=== PATIENT | female | born 1960 | race Two or more races ===

== ENCOUNTER → 2025-02-14 | Outpatient (CLI) | payer MEDICAID, SELFPAY ==
--- NOTE | 2025-02-14 14:30 | XR_ITS ---
Examination: Screening digital mammography, bilateral Computer aided detection 3-D breast Tomosynthesis, bilateral Date and time of exam: February 14, 2025 1425 hours Compared to mammograms dating to 08/04/2010 Indication: Screening Technique: Nonmagnified MLO, CC views of the breasts to been obtained, reconstructed from 3-D Tomosynthesis images. R2 computer aided detection program utilized for evaluation of suspicious masses and/or abnormal calcifications. 3-D Tomosynthesis images obtained. Findings: Scattered areas of fibroglandular density Benign calcifications. 10 mm focal asymmetry 12:00 position left breast IMPRESSION: BI-RADS Category 0: Incomplete: Need additional imaging evaluation 10 mm focal asymmetry 12:00 position left breast, recommend follow-up spot tomographic views of this asymmetry as well as left breast sonography to complete the workup
== END | disposition home or self-care (01) ==
PROVIDERS: PCP Registered Nurse Community Health; Referring Provider Registered Nurse Community Health; Visit Provider Registered Nurse Community Health
DX: Z12.31 Encounter for screening mammogram for malignant neoplasm of breast (principal); N64.89 Other specified disorders of breast
CPT/HCPCS: 77063; 77067

== ENCOUNTER → 2025-03-21 | Outpatient (CLI) | payer MEDICAID, SELFPAY ==
--- NOTE | 2025-03-21 15:15 | XR_ITS ---
Examination: Breast ultrasound, unilateral, left complete Date and time of exam: March 21, 2025 1525 hours INDICATIONS: Mammogram February 14, 2025 10 mm focal asymmetry 12:00 position left breast Technique: Real-time george scale ultrasonographic imaging performed left breast including all 4 quadrants as well as nipple retroareolar and axillary region. Findings: 1:00 nodule circumscribed 6 x 7 mm IMPRESSION: BI-RADS Category 3: Probably benign findings One additional 6 month left breast sonogram follow-up is needed to document stability of 1:00 nodule described above
--- NOTE | 2025-03-21 15:45 | XR_ITS ---
Examination: Diagnostic digital mammography, unilateral, left Computer aided detection 3-D breast Tomosynthesis, unilateral Date and time of exam: March 21, 2025 1536 hours INDICATIONS: Mammogram February 14, 2025 10 mm focal asymmetry 12:00 position left breast Technique: Nonmagnified MLO, CC views of the left breast have been obtained, reconstructed from 3-D Tomosynthesis images. R2 computer aided detection program utilized for evaluation of suspicious masses and/or abnormal calcifications. 3-D Tomosynthesis images obtained. Findings: Scattered areas of fibroglandular density. Focal asymmetry does remain inner upper left breast, probably benign Impression: BI-RADS category 3: Probably benign findings One additional 6 month left breast sonogram follow-up is needed
== END | disposition home or self-care (01) ==
PROVIDERS: PCP Registered Nurse Community Health; Referring Provider Registered Nurse Community Health; Visit Provider Registered Nurse Community Health
DX: N63.20 Unspecified lump in the left breast, unspecified quadrant (principal); R92.322 Mammographic fibroglandular density, left breast; N63.21 Unspecified lump in the left breast, upper outer quadrant
CPT/HCPCS: 76641; 77061; 77065; G0279